=== PATIENT | female | born 2000 | race Caucasian/White ===

== ENCOUNTER 2025-09-12 02:50 | Observation (INO) | payer MEDICAID ==
[~2025-09-12] VITALS: Ht 162.6 cm; Wt 114.3 kg
--- NOTE | 2025-09-12 05:09 | DVH ---
INDICATION: ovarian cysts pain TECHNIQUE: Multiple real-time grayscale transabdominal sonographic images along with color and duplex Doppler of the uterus and ovaries were obtained. COMPARISON: US PELVIS PREG on DOS: 05/21/25 FINDINGS: Single viable intrauterine gestation at 36 weeks 0 days with positive heart tones documented at 127 beats per minute. Presentation is cephalic and the placenta is fundal grade II. No evidence of previa or abruption. Amniotic fluid index measures 13.3 cm and MVP is 4.6 cm. Right ovary measures 7.9 x 5.6 x 5.4 cm with normal arterial and venous flow and contains an anechoic avascular structure measuring 6.9 x 5.1 x 4.5 cm. Left ovary is not visualized. IMPRESSION: 1. Single viable intrauterine gestation at 36 weeks 0 days with positive heart tones documented at 127 beats per minute. Estimated date of delivery 10/10/2025. 2. Right ovarian cyst.
--- NOTE | 2025-09-12 20:12 | DVHDS2 ---
Physician Discharge Progress N Final Diagnosis: right ovarian cyst Operations or Procedures: Operations or Procedures S: 24yo IUP@36.0wks presents to OB triage with c/o ovarian cyst pain but does not want to take Tylenol or any other medication for it. +FM, Denies UCs/LOF/VB/GALAVIZ/vision changes/RUQ pain. Endorses +FM. PNC at [facility]. O: VSS NST reactive OB sono done A: 24yo IUP@36.0wks Right ovarian cyst P: D/C home FKC/PTL/preE precautions reviewed Ovarian torsion s/sx discussed. f/u with primary OB as scheduled Other Interventions Other Interventions [place] [id number] Ph: [phone] DIAGNOSTIC IMAGING Diagnostic Imaging Report : [id number] Signed PATIENT: ALF HARRISACCT: [id number] UNIT: [id number] : 2000 LOC: [facility] ROOM / BED: TRIAGE1 / A AGE / SEX: 24 / F ADM STATUS: ADM IN SERVICE [id number] ORDERING PHYSICIAN: INGE WINKLER CNM PROCEDURE(s): OBLTD - OBSTERICAL LIMITED REASON: ovarian cysts pain ORDER NUMBER(s): [id number], ACCESSION NUMBER(s): [id number] INDICATION: ovarian cysts pain TECHNIQUE: Multiple real-time grayscale transabdominal sonographic images along with color and duplex Doppler of the uterus and ovaries were obtained. COMPARISON: US PELVIS PREG on DOS: 05/21/25 FINDINGS: Single viable intrauterine gestation at 36 weeks 0 days with positive heart tones documented at 127 beats per minute. Presentation is cephalic and the placenta is fundal grade II. No evidence of previa or abruption. Amniotic fluid index measures 13.3 cm and MVP is 4.6 cm. Right ovary measures 7.9 x 5.6 x 5.4 cm with normal arterial and venous flow and contains an anechoic avascular structure measuring 6.9 x 5.1 x 4.5 cm. Left ovary is not visualized. IMPRESSION: 1. Single viable intrauterine gestation at 36 weeks 0 days with positive heart tones documented at 127 beats per minute. Estimated date of delivery 10/10/2025. 2. Right ovarian cyst. ATED BY: GABBI PATEL MD DICTATED DATE/TIME: 09/12/25506 SIGNED BY: GABBI PATEL MD SIGNED DATE/TIME: 09/12/25506 CC: Condition on Discharge: Stable Disposition: Home Discharge Instructions: Diet: Regular Activity: No Restrictions, As Tolerated Medications: see med list Follow Up Care: Specialist: f/u with primary OB as scheduled Discharge Statement: "Patient was advised to return to the ER or call 911 if any headaches, dizziness, shortness of breath, chest pain, abdominal pain, bleeding, fevers, or worsening of medical condition. Patient was counseled about treatment plan, medications, possible side effects, patientverbalized understanding. All questions were answered to the best of my ability. This discharge took greater then 30 minutes in planning, reviewing document ation, counseling the patient, and discussing with other team members." Visit Coding OBGYN Date of Service: Sep 12, 2025 Billing Provider: INGE WINKLER CNM SOCIAL WELFARE CLERK Common Visit Codes: 27977-[id number] OBS CARE (HIGH) SOCIAL WELFARE CLERK Procedure Codes: 84724-30- NON-STRESS TEST INGE WINKLER CNM Sep 12, 2025 20:12
== END 2025-09-12 05:06 | disposition home or self-care (01) ==
LOC: LDRP 02:50
PROVIDERS: ADMIT Obstetrics & Gynecology; ATTEND Obstetrics & Gynecology
DX: O34.83 Maternal care for other abnormalities of pelvic organs, third trimester (principal); N83.201 Unspecified ovarian cyst, right side; Z3A.36 36 weeks gestation of pregnancy; Z98.890 Other specified postprocedural states
CPT/HCPCS: 59025; 76815; 81002; 94760; A4649; G0378